=== PATIENT | male | born 1960 | race Caucasian/White ===

== ENCOUNTER 2021-04-23 13:43 | Emergency (ER) | payer MEDICAID ==
[~2021-04-23] VITALS: Ht 175.3 cm; Wt 63.5 kg
[2021-04-23 14:05] VITALS: BP 141/79
--- NOTE | 2021-04-23 14:09 | NUR ---
Pt bib [facility] s/p mec fall no c/o pain. no loc/ko, pt sts "I needed my diapers changed but nobody would help me. So I crawled to the bathroom. I layed down when the nurse came in and said "I had to go to the ER for a ER/MD to e-sanam me for a fall, BUT I DID NOT FALL!" hx cva rt side january/2021.
--- NOTE | 2021-04-23 14:31 | NUR ---
no truama noted, er/pa at bedside
--- NOTE | 2021-04-23 14:36 | NUR ---
pt taken to xray via [facility]
--- NOTE | 2021-04-23 14:52 | NUR ---
pt returned from xray
--- NOTE | 2021-04-23 15:21 | NUR ---
[facility] CALLED. ETA 45 MIN
--- NOTE | 2021-04-23 15:29 | NUR ---
PT HAD 1 BM, PT CLEANED, PT PLACED ON DIAPER
[2021-04-23 16:24] VITALS: BP 141/79
--- NOTE | 2021-04-23 16:24 | NUR ---
Patient discharged with v/s stable. Written and verbal after care instructions given and explained. Patient alert, oriented and verbalized understanding of instructions. Wheel Chair Assisted to [facility] to shelter. All questions addressed prior to discharge. ID band removed. Patient advised to follow up with PMD. Opportunity to ask questions provided and answered.
--- NOTE | 2021-04-23 17:10 | NUR ---
pt re-evaled by er md Dr Rivera.for mec fall at [facility]. Pt is medically cleared for the 2nd time. er md Dr. Rivera gave to for pt to go back to [facility]. report I called report to change RN/director Alida. pt verbal understanding of all dischaged info given vss, pt stable at this time
== END 2021-04-23 16:24 | disposition home or self-care (01) ==
LOC: MED 13:43
DX: S70.02XA Contusion of left hip, initial encounter (principal); W18.39XA Other fall on same level, initial encounter; Y93.89 Activity, other specified; Y92.89 Other specified places as the place of occurrence of the external cause; Y99.8 Other external cause status
CPT/HCPCS: 72170; 99283

== ENCOUNTER 2021-07-12 12:19 | Emergency (ER) | payer MEDICAID ==
[~2021-07-12] VITALS: Ht 167.6 cm; Wt 62.6 kg
--- NOTE | 2021-07-12 12:29 | NUR ---
BIBA BLS TO ER BED 3
--- NOTE | 2021-07-12 12:30 | NUR ---
PT TAKEN TO ROOM 3 BY EMT CANDE CAO
[2021-07-12 12:34] VITALS: BP 111/64
--- NOTE | 2021-07-12 12:34 | NUR ---
60 Y/O M BIB AMB FROM [facility] [place], C/O R FOOT PAIN X 4 DAYS. R FOOT APPEARS WARM/RED/EDEMATOUS(+1, NON-PITTING) AND TENDER TO TOUCH. DENIES TRAUMA TO FOOT, DENIES ANY RECENT FALLS. PEDAL PULSE WEAK ON RIGHT FOOT, STRONG PEDAL PULSE ON LEFT FOOT. [facility] REPORTS PT HAS A HX OF BEING COMBATIVE. INCONTINENT X 2. PMH: DEMENTIA, CVA, R>L, HTN, COPD, L SIDED WEAKNESS, HYPERLIPIDEMIA ALLERGY: PENICILLIN MED: SEE LIST
[2021-07-12] MEDS ORDERED: DOPPLER MC ONE (13:38)
--- NOTE | 2021-07-12 13:47 | NUR ---
LAB AT BEDSIDE TO COLLECT BLOOD.
[2021-07-12 14:05] LABS: BASOPHILS % (AUTO) 0.7 % (0.0-2.0); EOSINOPHILS # (AUTO) 0.2 K/uL (0-0.4); EOSINOPHILS % (AUTO) 3.3 % (0.0-4.0); HEMATOCRIT 40.2 % (36-52); HEMOGLOBIN 13.7 g/dL (12.0-18.0); LYMPHOCYTES # (AUTO) 2.6 K/uL (2.0-11.5); LYMPHOCYTES % (AUTO) 35.4 % (20.5-51.1); MEAN CORPUSCULAR HEMOGLOBIN 33 pg (27-31); MEAN CORPUSCULAR HGB CONC 34 g/dL (33-37); MONOCYTES # (AUTO) 0.8 K/uL (0.8-1.0); MONOCYTES % (AUTO) 10.2 % (1.7-9.3); NEUTROPHILS # (AUTO) 3.7 K/uL (1.8-7.7); NEUTROPHILS % (AUTO) 50.4 % (42.2-75.2); PLATELET COUNT (AUTO) 236 K/uL (140-450); RED BLOOD CELL COUNT(AUTO) 4.18 MIL/uL (4.20-6.10); RED CELL DISTRIBUTION WIDTH 13.3 % (11.6-13.7); WHITE BLOOD COUNT (AUTO) 7.3 K/uL (4.8-10.8)
[2021-07-12 14:18] LABS: PROTHROMBIN TIME 10.1 secs (10.8-13.4)
[2021-07-12 14:20] LABS: ALBUMIN 3.8 g/dL (3.4-5.0); CARBON DIOXIDE 32.9 mmol/L (21-32); CREATININE 0.7 mg/dL (0.6-1.3); POTASSIUM 3.9 mmol/L (3.5-5.1); TOTAL BILIRUBIN 0.5 mg/dL (0.0-1.0)
--- NOTE | 2021-07-12 14:53 | NUR ---
URINE COLLECTED AT BEDSIDE AND DIPPED. RESULTS SHOWN TO ERMD
[2021-07-12 15:04] LABS: APPEARANCE,URINE CLEAR (CLEAR); BILIRUBIN,URINE NEGATIVE (NEGATIVE); BLOOD, URINE TRACE-I (NEGATIVE); COLOR,URINE YELLOW (YELLOW); LEUKOCYTE ESTERASE ,URINE NEGATIVE (NEGATIVE); NITRITE, URINE NEGATIVE (NEGATIVE); PH,URINE 6.5 (5.0-9.0); UGLUCOSE NEGATIVE (NEGATIVE)
--- NOTE | 2021-07-12 16:00 | NUR ---
Patient appears to be resting comfortably in bed. Vital Signs within normal limits. Respirations even and unlabored. All needs amet and attended to. Pt assisted to void.
--- NOTE | 2021-07-12 16:44 | NUR ---
PATIENT TO BE PICKED UP AT 1800 FOR TRANSPORT
[2021-07-12] MEDS ORDERED: CLIN300C52 PO (16:55)
[2021-07-12] MEDS ORDERED: CLINDAMYCIN 150 MG CAP PO ONE (17:00)
--- NOTE | 2021-07-12 17:56 | NUR ---
per ermd pt left leg was place into an orth shoe.
--- NOTE | 2021-07-12 18:20 | NUR ---
Attempted to call [facility] for report. Placed on hold for long periods of time while a nurse was paged. Unable to give report at this time.
--- NOTE | 2021-07-12 19:14 | NUR ---
Pt report given to [facility]. Transfer of care at this time.
--- NOTE | 2021-07-12 23:59 | NUR ---
GAVE DISCHARGE REPORT TO [facility].PT WILL BE W/C TO AND FROM VEHICLE
--- NOTE | 2021-07-13 00:50 | NUR ---
PATIENT DISCHARGED AT THIS TIME AND MOVED INTO [facility] BY NURSES AND NO OTHER COMPLAINTS OR CONCERNS. REPORT GIVEN TO [facility] AND THEY ARE AWARE OF PATIETN ARRIVAL./
--- NOTE | 2021-07-13 00:51 | NUR ---
Patient discharged with v/s stable. Written and verbal after care instructions given and explained. Patient alert, oriented and verbalized understanding of instructions. Wheel Chair Assisted with to car. All questions addressed prior to discharge. ID band removed. Patient advised to follow up with PMD. Rx of CLINDAMYCIN HCL given. Patient educated on indication of medication including possible reaction and side effects. Opportunity to ask questions provided and answered.
[2021-07-13 00:54] VITALS: BP 129/78
--- NOTE | 2021-07-13 00:54 | NUR ---
Chart checked and completed. The patient's care was reviewed and supervised by [facility] ED, RN.
== END 2021-07-13 00:51 | disposition home or self-care (01) ==
LOC: MED 12:19
DX: S92.424A Nondisplaced fracture of distal phalanx of right great toe, initial encounter for closed fracture (principal); L03.115 Cellulitis of right lower limb; J44.9 Chronic obstructive pulmonary disease, unspecified; F03.90 Unspecified dementia, unspecified severity, without behavioral disturbance, psychotic disturbance, mood disturbance, and anxiety; I10 Essential (primary) hypertension; E11.9 Type 2 diabetes mellitus without complications; E78.5 Hyperlipidemia, unspecified; Z79.899 Other long term (current) drug therapy; Z88.0 Allergy status to penicillin; Z86.73 Personal history of transient ischemic attack (TIA), and cerebral infarction without residual deficits; X58.XXXA Exposure to other specified factors, initial encounter; Y93.89 Activity, other specified; Y92.89 Other specified places as the place of occurrence of the external cause; Y99.8 Other external cause status
CPT/HCPCS: 36415; 73630; 80053; 81003; 83605; 85025; 85610; 87040; 99285